=== PATIENT | male | born 1975 | race African-American/Black ===

== ENCOUNTER 2019-06-01 14:22 | Emergency (ER) | payer SELFPAY | END 2019-06-01 15:56 | disposition home or self-care (01) | LOC: ERS 14:22 | DX: Z02.89 Encounter for other administrative examinations (principal); F17.210 Nicotine dependence, cigarettes, uncomplicated | CPT/HCPCS: 99282 ==

== ENCOUNTER 2025-01-07 18:07 | Emergency (ER) | payer OTHER, SELFPAY | END 2025-01-07 18:43 | LOC: ERS 18:07 | DX: R41.82 Altered mental status, unspecified (principal); T50.905A Adverse effect of unspecified drugs, medicaments and biological substances, initial encounter; I10 Essential (primary) hypertension; F17.210 Nicotine dependence, cigarettes, uncomplicated | CPT/HCPCS: 70450; 71045; 93005; 94760 ==